=== PATIENT | male | born 2000 | race Caucasian/White ===

== ENCOUNTER 2025-06-28 14:19 | Emergency (ER) | payer SELFPAY ==
[~2025-06-28] VITALS: Ht 180.3 cm; Wt 113.4 kg
[2025-06-28 17:44] LABS: BASO # 0.0 10^3/uL (0.0-0.2); BASO % 0.3 % (0.0-1.0); EOS # 0.1 10^3/uL (0.0-0.5); EOS % 0.4 % (0.0-3.0); LYMPH # 2.8 10^3/uL (1.5-5.0); LYMPH % 24.0 % (24.0-44.0); MONO # 1.2 10^3/uL (0.0-0.8); MONO % 10.0 % (2.0-8.0); NEUTROPHILS # 7.5 10^3/uL (1.5-8.5); NEUTROPHILS % 65.1 % (36.0-66.0); PLATELET COUNT, AUTOMATED 369 10^3/uL (150-450)
[2025-06-28 18:21] LABS: C REACTIVE PROTEIN QUANTITATIV 1.66 MG/DL (<1.0); CALCIUM LEVEL 9.4 MG/DL (8.5-10.1); CARBON DIOXIDE LEVEL 28 MMOL/L (20-31); CHLORIDE LEVEL 105 MMOL/L (98-107); CREATININE FOR GFR 0.87 MG/DL (0.70-1.30); GLOMERULAR FILTRATION RATE > 90.0 (>60); POTASSIUM SERUM 4.3 MMOL/L (3.5-5.1); SODIUM LEVEL 143 MMOL/L (136-145)
[2025-06-28 18:49] VITALS: BP 147/80; TEMP 97.4; O2SAT 100
[2025-06-28] MEDS ORDERED: PENI500T PO (18:56)
[2025-06-28] MEDS ORDERED: IBUP600T42 PO (18:56)
[2025-06-28] MEDS: PENICILLIN V POTASSIUM 500 MG TAB PO ONE (19:22)
== END 2025-06-28 19:25 | disposition home or self-care (01) ==
LOC: M ED 14:19
DX: K04.7 Periapical abscess without sinus (principal); Z91.018 Allergy to other foods; Z79.1 Long term (current) use of non-steroidal anti-inflammatories (NSAID); Z79.2 Long term (current) use of antibiotics

== ENCOUNTER 2025-06-30 13:55 | Emergency (ER) | payer SELFPAY ==
[~2025-06-30] VITALS: Ht 177.8 cm; Wt 117.4 kg
[~2025-06-30 13:55] MED LIST: IBUP600T42 PO; PENI500T PO
[2025-06-30 13:57] VITALS: BP 137/82; TEMP 98.1; O2SAT 99
[2025-06-30] MEDS ORDERED: BENA25CA4 PO (14:02)
[2025-06-30] MEDS ORDERED: ZITHTAB PO (14:43)
== END 2025-06-30 14:50 | disposition home or self-care (01) ==
LOC: M ED 13:55
DX: R21 Rash and other nonspecific skin eruption (principal); T36.0X5A Adverse effect of penicillins, initial encounter; Z91.018 Allergy to other foods; Z79.2 Long term (current) use of antibiotics; Z79.1 Long term (current) use of non-steroidal anti-inflammatories (NSAID); Z79.899 Other long term (current) drug therapy